=== PATIENT | male | born 1995 | race Caucasian/White ===

== ENCOUNTER → 2017-11-22 | Outpatient (CLI) | payer BC | LOC: LAB 11:44 | PROVIDERS: ATTEND Transplant Surgery | DX: Z00.5 Encounter for examination of potential donor of organ and tissue (principal) | CPT/HCPCS: 36415 ==

== ENCOUNTER → 2017-12-19 | Outpatient (CLI) | payer OTHER, BC ==
[~2017-12-19] MED LIST: IOPAMIDOL 76% 100 ML INFUS BTL 100 ML ONE; NS 0.9% 150 ML BAG 150 ML ONE
--- NOTE | 2017-12-19 15:45 | RADIOLOGY IMAGING REPORT ---
[place] [facility] [place] NAME: Feliciano Olson : 1995 MR: [id number] V: [id number] EXAM DATE: ORDERING PHYSICIAN: KADEN BECERRA TECHNOLOGIST: Location: [facility] - [place] Patient: Feliciano Olson : 1995 Visit/Account:[id number] Date of Sevice: 12/19/2017 CTA ABDOMEN PELVIS W WO CONT HISTORY: Renal donor ADDITIONAL HISTORY: None. TECHNIQUE: CTA abdomen and pelvis with and without contrast. 3D coronal slab MIPs and 2D reconstruc tions in the coronal and sagittal planes were also created. Dose Lowering Technique One of the following dose optimization techniques was utilized in the performance of this exam: Autom ated exposure control; adjustment of the mA and/or kV according to the patient's size; or use of an i terative reconstruction technique. Specific details can be referenced in the facility's radiology C T exam operational policy. CONTRAST: 100 COMPARISON: None. FINDINGS: Abdomen and Pelvis: Lungs/pleura: Negative. Hepatobiliary: Negative. Spleen: Spleen is mildly enlarged at 14 cm Adrenals: Negative. Pancreas: Negative. Kidneys: There is no demonstration of urolithiasis, hydronephrosis or hydroureter. Right kidney measures 10.4 cm in length. The left kidney measures 10.3 cm in length. 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 No contrast is identified in the distal portions of either ureter the refore is not certain as to whether the right ureters become fused before insertion into the bladder. There is a single left renal collecting system and single left ureter. There are single renal arteries bilaterally both of which appear widely patent without evidence of fo milka narrowing. Pelvic structures: Negative. Bowel/peritoneum/mesentery: There is no evidence of bowel wall thickening or bowel obstruction. No inflammatory changes seen surrounding the appendix Lymph nodes: There are scattered mesenteric lymph nodes seen along the right-sided the abdomen all me asuring less than 1 cm. Bones/body wall: Negative. Other findings: There is no demonstration of an abdominal aortic aneurysm or dissection. No atherosc lerotic calcifications are identified throughout the abdomen or pelvis. 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 No contrast is identified in the distal portion of either ureter theref ore is not certain as to whether the right ureters become fused before insertion into the bladder. There is a single left renal collecting system and single left ureter No evidence of urolithiasis Single renal arteries supply each kidney without evidence of stenosis. Mild splenomegaly Report Dictated By: Marianna Carrion MD at 12/19/2017 3:22 PM Report E-Signed By: Marianna Carrion MD at 12/19/2017 3:42 PM VINICIUSN:AMICIVN
--- NOTE | 2017-12-20 17:19 | RADIOLOGY IMAGING REPORT ---
FACILITY[place] [facility] [place] NAME: RUBEN GUTIERREZ : [id number] MR: [id number] V: [id number] EXAM DATE: ORDERING PHYSICIAN: OTHER OTHER TECHNOLOGIST: Aleisha Walker EXAMINATION:TWO-DIMENSIONAL ECHOCARDIOGRAPH REASON:RENAL DONOR 2D Measurements (normal values in centimeters) LV endLV endRV endVent.LV PostAorticLeftPercent DiastolicSystolicDiastolicSeptumWallRootAtriumShortening (3.5-5.7)(0.9-2.6)(0.6-1.1)(0.6-1.1)(2.0-3.7)(1.9-4.0)(25-35%) [id number]% STROKE VOLUME: 65ml ESTIMATED EJECTION FRACTION:66% PARASTERNAL LONG AXIS: Overall left ventricular systolic function appears to be normal & chamber sizes also appear to be normal. Aortic valve & mitral valve both appear to open normally. Color examination of the valves reveals a trace of mitral & aortic insufficiency present. PARASTERNAL SHORT AXIS: Again overall left ventricular systolic function appears to be normal & chamber sizes appear to be normal. The aortic valve is trileaflet in configuration & appears to open normally. The pulmonic valve was not all that well seen but it appears to open normally. There is a trace of pulmonic insufficiency noted. A trace amount of tricuspid insufficiency is also noted. APICAL FOUR AND TWO CHAMBER: Normal left ventricular ejection fraction. Normal chamber sizes. The aortic valve area & mitral valve area both measure within normal ranges at 3.7 & 2.9cm2 respectively. The tricuspid regurgitation Vmax measured 2.19m/sec. The estimated right atrial pressure was 3mm Hg. The left atrial & right atrial volumes are measured within normal ranges at 27 & 22ml/m2. SUBCOSTAL VIEW: No pericardial effusion was noted. No atrioseptal or ventriculoseptal defects were appreciated. Doppler examination of the mitral valve in diastole does reveal a normal pattern for age. IVC is normal in size. OVERALL IMPRESSION: 1. Essentially normal 2D echocardiograph. Normal left ventricular systolic & diastolic function & normal chamber sizes. Right ventricle also appears to contract normally & the TAPSE is measured within normal ranges at 2.0. 2. A trileaflet aortic valve with a trace of aortic insufficiency with no stenosis. 3. A trace of mitral insufficiency with no stenosis. 4. A trace of pulmonic insufficiency. The valve was not all that well seen but appears to open normally. 5. A trace amount of tricuspid insufficiency with estimated right ventricular systolic pressures within normal ranges at 22mm Hg which does include an estimated right atrial pressure of 3mm Hg. Dictated by: Elliott Tomas M.D. on 12/19/2017 at 17:14 Transcribed by: AVANI on 12/20/2017 at 10:16 Approved by: Elliott Tomas M.D. on 12/20/2017 at 17:18 [facility]
== END ==
LOC: CT 07:52
PROVIDERS: ATTEND Transplant Surgery
DX: Z00.5 Encounter for examination of potential donor of organ and tissue (principal); R16.1 Splenomegaly, not elsewhere classified
CPT/HCPCS: 36415; 74174; 81001; 82950; 83036; 86038; 86900; 86901; 93306; Q9967; 80307; 82040; 82247; 82310; 82374; 82435; 82565; 82610; 82947; 84075; 84132; 84155; 84295; 84450; 84460; 84520

== ENCOUNTER → 2017-12-26 | Outpatient (CLI) | payer OTHER, BC | LOC: LAB 12:41 | PROVIDERS: ATTEND Transplant Surgery | DX: Z00.5 Encounter for examination of potential donor of organ and tissue (principal) | CPT/HCPCS: 36415; 82043; 82575; 84156 ==

== ENCOUNTER → 2018-04-26 | Outpatient (CLI) | payer OTHER ==
[2018-04-26 14:54] LABS: PLATELET COUNT, AUTOMATED 477 K/uL (150-450)
== END ==
LOC: LAB 14:27
DX: Z52.4 Kidney donor (principal)
CPT/HCPCS: 36415; 81001; 82310; 82374; 82435; 82565; 82947; 84132; 84295; 84520; 85025; 87088

== ENCOUNTER → 2019-04-06 | Outpatient (CLI) | payer OTHER ==
[2019-04-06 11:04] LABS: PLATELET COUNT, AUTOMATED 233 K/uL (150-450)
== END ==
LOC: LAB 10:45
PROVIDERS: ATTEND Transplant Surgery
DX: Z00.5 Encounter for examination of potential donor of organ and tissue (principal)
CPT/HCPCS: 36415; 81001; 82310; 82374; 82435; 82565; 82947; 84132; 84295; 84520; 85025